=== PATIENT | female | born 1955 | race Caucasian/White ===

== ENCOUNTER 2016-12-10 16:46 | Emergency (ER) | payer SELFPAY ==
[~2016-12-10] VITALS: Ht 162.6 cm; Wt 85.0 kg
[2016-12-10 16:48] VITALS: BP 159/83; PULSE 82; RESP 20; TEMP 98; O2SAT 97
== END 2016-12-10 18:11 | disposition left against medical advice (07) ==
LOC: NED 16:46
DX: N39.9 Disorder of urinary system, unspecified (principal)
CPT/HCPCS: 99281